=== PATIENT | male | born 1970 | race Caucasian/White ===

== ENCOUNTER 2021-03-25 14:20 | Inpatient (IN) ==
[2021-03-25] MEDS ORDERED: ONDANSETRON 4 MG/2 ML VIAL IV STA (15:00)
[2021-03-25] MEDS ORDERED: HYDROmorphone 2 MG/1 ML VIAL IV STA (15:00)
[2021-03-25] MEDS: metroNIDAZOLE INJ 500 MG/100 ML PREMIX IV SCH ×2 (15:37→23:28)
[2021-03-25 17:22] LABS: Calcium 8.5 MG/DL (8.5-10.1); Osmolality,Calculated 276.5 MOS/KG (273-304); Potassium 3.6 MMOL/L (3.5-5.1)
[2021-03-25] MEDS: DEXTROSE 5% LACTATED RINGERS 1,000 ML IV SCH ×2 (17:40→23:30)
[2021-03-25] MEDS: HYDROmorphone 2 MG/1 ML VIAL IV PRN (21:28)
[2021-03-25] MEDS: PIPERACILLIN/TAZOBACTAM 3,375 MG in SODIUM CHLORIDE 0.9% 100 ML IV SCH (21:31)
[2021-03-26 04:46] LABS: Basophils % 0.3 % (0.0-0.8); Eosinophils # 0.3 10*3/uL (0.0-0.87); Eosinophils % 4.2 % (0.00-10.9); Hematocrit 39.4 VOL% (42.0-52.0); Hemoglobin 13.2 GM/DL (14.0-18.0); Immature Granulocytes % 0.4 %; Immature Granulocytes Absolute 0.03 #; Lymphocytes # 2.1 10*3/uL (1.4-4.0); Lymphocytes % 27.8 % (21.2-54.2); Mean Corpuscular HGB Conc 33.5 GM/DL (32-36); Mean Corpuscular Volume 90.8 FL (87-102); Mean Platelet Volume 9.8 FL (9.6-12.0); Monocytes % 8.4 % (1.7-12.7); Neutrophils % 58.9 % (38.7-73.9); Platelet Count 252 T/CUMM (130-400); Red Blood Count 4.34 MC/CUMM (3.8-5.5); Red Cell Distribution Width 12.5 % (9.3-17.3); White Blood Count 7.6 T/CUMM (4-12)
[2021-03-26] MEDS: PIPERACILLIN/TAZOBACTAM 3,375 MG in SODIUM CHLORIDE 0.9% 100 ML IV SCH ×3 (04:52→22:15)
[2021-03-26 05:21] LABS: Calcium 8.7 MG/DL (8.5-10.1); Osmolality,Calculated 276.5 MOS/KG (273-304); Potassium 3.3 MMOL/L (3.5-5.1)
[2021-03-26] MEDS: DEXTROSE 5% LACTATED RINGERS 1,000 ML IV SCH ×2 (07:07→17:44)
[2021-03-26] MEDS: HYDROmorphone 2 MG/1 ML VIAL IV PRN ×2 (09:14→17:56)
[2021-03-26] MEDS: ENOXAPARIN 40 MG/0.4 ML SYRINGE SUBCUT SCH (09:17)
[2021-03-26] MEDS: PANTOPRAZOLE 40 MG VIAL IV SCH (09:17)
[2021-03-26] MEDS: metroNIDAZOLE INJ 500 MG/100 ML PREMIX IV SCH ×2 (09:18→17:43)
[2021-03-26] MEDS: POTASSIUM CHLORIDE 20 MEQ TABLET PO PRN (10:23)
[2021-03-27] MEDS: metroNIDAZOLE INJ 500 MG/100 ML PREMIX IV SCH ×4 (01:49→23:48)
[2021-03-27] MEDS: DEXTROSE 5% LACTATED RINGERS 1,000 ML IV SCH ×3 (01:51→23:47)
[2021-03-27] MEDS: HYDROmorphone 2 MG/1 ML VIAL IV PRN ×5 (02:03→23:48)
[2021-03-27] MEDS: PIPERACILLIN/TAZOBACTAM 3,375 MG in SODIUM CHLORIDE 0.9% 100 ML IV SCH ×3 (05:50→20:17)
[2021-03-27 06:18] LABS: Basophils % 0.3 % (0.0-0.8); Eosinophils # 0.4 10*3/uL (0.0-0.87); Eosinophils % 5.3 % (0.00-10.9); Immature Granulocytes % 0.3 %; Immature Granulocytes Absolute 0.02 #; Lymphocytes # 1.7 10*3/uL (1.4-4.0); Lymphocytes % 25.6 % (21.2-54.2); Mean Corpuscular HGB Conc 33.3 GM/DL (32-36); Mean Corpuscular Volume 90.9 FL (87-102); Mean Platelet Volume 9.6 FL (9.6-12.0); Monocytes % 8.2 % (1.7-12.7); Neutrophils % 60.3 % (38.7-73.9); Platelet Count 264 T/CUMM (130-400); Red Blood Count 4.29 MC/CUMM (3.8-5.5); Red Cell Distribution Width 12.4 % (9.3-17.3); White Blood Count 6.8 T/CUMM (4-12)
[2021-03-27 06:42] LABS: Calcium 8.6 MG/DL (8.5-10.1); Osmolality,Calculated 278.4 MOS/KG (273-304); Potassium 3.5 MMOL/L (3.5-5.1)
[2021-03-27] MEDS: PANTOPRAZOLE 40 MG VIAL IV SCH (09:33)
[2021-03-27] MEDS: POTASSIUM CHLORIDE 20 MEQ TABLET PO PRN ×2 (09:34→16:22)
[2021-03-27] MEDS: ENOXAPARIN 40 MG/0.4 ML SYRINGE SUBCUT SCH (09:34)
[2021-03-27] MEDS: ONDANSETRON 4 MG/2 ML VIAL IV PRN (16:23)
[2021-03-28] MEDS: PIPERACILLIN/TAZOBACTAM 3,375 MG in SODIUM CHLORIDE 0.9% 100 ML IV SCH (04:11)
[2021-03-28] MEDS: HYDROmorphone 2 MG/1 ML VIAL IV PRN ×2 (08:39→17:13)
[2021-03-28] MEDS: ONDANSETRON 4 MG/2 ML VIAL IV PRN ×2 (08:41→17:14)
[2021-03-28] MEDS: PANTOPRAZOLE 40 MG VIAL IV SCH (08:44)
[2021-03-28] MEDS: metroNIDAZOLE INJ 500 MG/100 ML PREMIX IV SCH (08:45)
[2021-03-28] MEDS: ENOXAPARIN 40 MG/0.4 ML SYRINGE SUBCUT SCH (08:46)
[2021-03-28] MEDS ORDERED: CIPROFLOXACIN 500 MG TABLET PO SCH (15:00)
[2021-03-28] MEDS: metroNIDAZOLE 500 MG TABLET PO SCH ×2 (15:14→17:17)
[2021-03-28 16:36] VITALS: BP 120/75
== END 2021-03-28 18:00 | disposition home or self-care (01) | DRG 392 ==
LOC: N.ED 14:20 → N.EDINP 15:13 → N.5E 18:16
PROVIDERS: ADMIT Surgery; ATTEND Surgery